=== PATIENT | female | born 1975 | race Caucasian/White ===

== ENCOUNTER 2023-12-05 21:32 | Emergency (ER) | payer BC, SELFPAY ==
[2023-12-05 21:35] VITALS: BP 172/100
--- NOTE | 2023-12-05 21:50 | ED.GENMED ---
History of Present Illness
General
Chief Complaint: Medication Reaction
Source: patient
Exam Limitations: none
Time Seen by Provider: 12/05/23 21:50
Nursing documentation reviewed up to this point in time: agreed with
Travel History
Have you had any contact with someone who has COVID-19?: No
Do you have any symptoms of coronavirus? Fever > 100 degrees, chills, cough, shortness of breath, sore throat, loss of taste or smell, muscle aches, or headache?: No
History of Present Illness
History of Present Illness:
48-year-old female presents to the ER for evaluation. Patient reports she had taken half of a THC gummy and drank an herbal drink and reports prior to arrival she suddenly felt lightheaded and reports that her heart rate was elevated and went as
high as 150. She reports she did feel anxious over this and felt a little short of breath. She felt that way while driving to the ER however upon my exam patient reports she feels much better. She has taken this herbal drink before however has
never taken it with THC.
She reports that she had left hip replaced 8 weeks ago denies any actual swelling to the leg denies any pain.
No prior history of DVT PE. She does not smoke.
She reports that she took an Katina this morning but no other medications.
Review of Systems
Review of Systems
Allergies reviewed?: Yes
All Other Systems: ROS reviewed and negative except as documented in HPI and ROS
Constitutional: Reports no symptoms; Denies fever, fatigue or chills
EENT: Reports no symptoms
Respiratory: Reports trouble breathing (has since resolved )
Cardiac: Reports palpitations and other (felt lightheaded professor of history ); Denies chest pain, diaphoresis or syncope
ABD/GI: Reports no symptoms; Denies abdominal pain, nausea or vomiting
Musculoskeletal: Reports no symptoms
Skin: Reports no symptoms
Neurological: Reports no symptoms
Psychiatric: Reports no symptoms
Phy Exam
General Physical Exam
General Presentation: no apparent distress
General age: appears stated age
General Skin: warm and dry
General Habitus: normal
General Mental: alert
General Hydration: appears well hydrated
Cardiovascular Exam
Cardiovascular Exam: regular rate/rhythm, no murmur and normal peripheral pulses
Pulmonary Exam
Pulmonary Exam: lungs clear and no respiratory distress
Neurological Exam
Neurological Exam: alert and oriented x3
Teodoro Coma Scale
Eye Opening: Spontaneous
Verbal Response: Oriented
Motor Response: Obeys Commands
GCS Total Score: 15
Musculoskeletal Exam
Musculoskeletal Exam: full ROM
Skin Exam
Skin Exam: normal color and warm/dry
Psychiatric Exam
Psychiatric Exam: normal mood/affect
Course
Orders/Labs/Results
Orders:
Orders
12/05/23 22:07
Cardiac Monitoring- Treatment ONCE
IV Insert/Care/Rem.- Treatment PRN
0.9% Sodium Chloride 1000 ml [Nss] 1,000 ml IV BOLUS
12/05/23 22:08
Electrocardiogram (*1) Stat
Reason for Study: Abdominal Pain
EKG- Treatment ONCE
Test Result ONCE
12/05/23 22:16
Complete Blood Count/With Diff Urgent
Comprehensive Metabolic Panel Urgent
HCG, Serum Qualitative Screen Urgent
Abnormal Lab Results
12/05/23
22:16
RBC 3.87 L 10^6/uL
(4.20-5.40)
Hgb 11.5 L g/dL
(12.0-16.0)
Hct 32.9 L %
(37.0-47.0)
Absolute Monos (auto) 0.9 H 10^3/uL
(0.1-0.6)
Monocytes % 11.0 H %
(1.7-9.3)
Sodium 132 L mmol/L
(135-145)
BUN 20 H mg/dl
(7-17)
Glucose 110 H mg/dl
(70-99)
12/05/23 22:16
12/05/23 22:16
Vital Signs
Initial and Last Documented VS:
Initial Vital Signs
Temp Pulse Resp BP Pulse Ox
97.5 F 104 22 172/100 100
12/05/23 21:35 12/05/23 21:35 12/05/23 21:35 12/05/23 21:35 12/05/23 21:35
Last Documented Vital Signs
Temp Pulse Resp BP Pulse Ox
97.5 F 62 15 113/73 100
12/05/23 21:46 12/06/23 00:00 12/06/23 00:00 12/05/23 23:00 12/05/23 21:35
Emu Farmer consulted with Physician
Emu Farmer consulted with physician?: Yes
Name of Physician Consulted: allan
MDM/Problems Addressed
Differential Diagnosis Includes:
Not limited to arrhythmia palpitations dehydration medication/drug interaction
MDM/Problems Addressed:
Symptoms are likely from combination of THC and herbal supplement. Patient does report that her heart rate was 150 after she felt lightheaded. She does admit that she may have been anxious over not feeling well. She presented here awake alert no
acute distress nontachycardic nontachypneic lungs are clear not hypoxic. No obvious lower extremity swelling. No concerns as patient has been asymptomatic for DVT PE. Patient has been stable here in the ER heart rate in the 60s. Patient was
given fluids and hydrated here. She reports she did take an Katina this morning and drank coffee and though she has been drinking water, BUN was mildly elevated. Slight component of dehydration. Case to the ED physician will DC home .
*Pulse Oximetry
Patient hypoxic: no
*EKG
Interpreted by ED Provider?: Yes
Interpretation: normal
Heart Rate: 70
Rate: normal
Rhythm: sinus
Ischemia: no ischemia
*Critical Care Note
Total Time (30-74mins, 75-104mins- exclusive of procedures): Not Applicable
ED Attending Note
-
Portions of this chart may have been created with voice recognition software.� Occasional wrong word or��sound alike� substitutions may have occurred due to the inherent limitations of voice recognition software.
Discharge Plan
Departure
Patient Disposition: Home (Routine Discharge)
Date of Disposition: 12/06/23
Time of Disposition: 00:21
Patient with high blood pressure during this ER visit?: Yes
Condition: Fair
Covid-19: Not Applicable
Discharge Problem:
Heart palpitations
Instructions: Palpitations (DC), BLOOD PRESSURE
Referrals:
Asuncion Stephen CRNP [Family Provider] -
Activity Restrictions/Additional Instructions:
Increase fluids. Follow-up with family doctor in the next several days and return if any worsening of symptoms
Interventions
Interventions:
*Risk Screen - Suicide Last Done: 12/05/23 21:35
*General Assessment Last Done: 12/05/23 23:32
*Neglect/Abuse Screening Last Done: 12/05/23 21:35
ED- Fall Risk Assessment Last Done: 12/05/23 22:23
ED-Skin Assessment Last Done: 12/05/23 22:23
ED- Pulmonary Assessment Last Done: 12/05/23 22:23
ED-EENT Assessment Last Done: 12/05/23 22:23
[2023-12-05] MEDS: NSS 1000 IV (22:17)
[2023-12-05 22:19] VITALS: BP 121/79
[2023-12-05 22:26] LABS: % Eosinophils 3.6 % (0-6); % Immature Granulocytes 0.4 % (0-0.5); % Lymphocytes 20.8 % (20.5-51.1); % Neutrophils 63.2 % (42.2-75.2); Absolute Basophils 0.1 10^3/uL (0-0.2); Absolute Eosinophils 0.3 10^3/uL (0-0.7); Absolute Lymphocytes 1.6 10^3/uL (1.2-3.4); Absolute Monocytes 0.9 10^3/uL (0.1-0.6); Hematocrit 32.9 % (37.0-47.0); Hemoglobin 11.5 g/dL (12.0-16.0); Mean Corpuscular Hgb 29.7 pg (27.0-31.0); Mean Platelet Volume 10.4 fL (7.4-10.4); Nucleated Red Blood Cells % 0 %; Platelet Count 245 10^3/uL (130-400); Red Blood Cell Count 3.87 10^6/uL (4.20-5.40); White Blood Cell Count 7.9 10^3/uL (4.8-10.8)
[2023-12-05 22:49] LABS: ALT (SGPT) 17 U/L (0-35); AST (SGOT) 31 U/L (14-36); Albumin 3.9 g/dl (3.5-5.0); Alkaline Phosphatase 43 U/L (38-126); Blood Urea Nitrogen 20 mg/dl (7-17); Calcium 9.1 mg/dl (8.4-10.2); Carbon Dioxide 24 mmol/L (22-30); Glucose 110 mg/dl (70-99); HCG, Serum Qualitative Screen Negative; Total Bilirubin 0.5 mg/dl (0.2-1.3); Total Protein 6.6 g/dl (6.3-8.2); eGFR > 60.00
[2023-12-05 23:00] VITALS: BP 113/73
[2023-12-05 23:09] LABS: Chloride 98 mmol/L (98-107); Potassium 4.3 mmol/L (3.5-5.1); Sodium 132 mmol/L (135-145)
[2023-12-06 00:05] VITALS: BP 105/71
== END 2023-12-06 00:31 | disposition home or self-care (01) ==
LOC: EMR 21:32
PROVIDERS: Nurse Practitioner; EMERGENCY PHYSICIAN Student in an Organized Health Care Education/Training Program; FAMILY PHYSICIAN Nurse Practitioner
DX: R00.2 Palpitations (principal); R06.02 Shortness of breath; R42 Dizziness and giddiness; E86.0 Dehydration; F41.9 Anxiety disorder, unspecified; R03.0 Elevated blood-pressure reading, without diagnosis of hypertension
CPT/HCPCS: 99284; 96360; 80053; 84703; 85025; 93005

== ENCOUNTER → 2025-03-28 09:33 | Outpatient (REF) | payer BC, SELFPAY | LOC: RAD 09:33 | PROVIDERS: ATTENDING PHYSICIAN Obstetrics & Gynecology; FAMILY PHYSICIAN Nurse Practitioner | DX: N92.0 Excessive and frequent menstruation with regular cycle (principal) | CPT/HCPCS: 76830; 76856 ==